=== PATIENT | male | born 1935 | race Caucasian/White ===

== ENCOUNTER 2018-05-25 21:31 | Inpatient (IN) ==
--- NOTE | 2018-05-25 22:08 | ED ---
HPI General Chief Complaint: Shortness of Breath/Dyspnea Stated Complaint: Respitory Time Seen by Provider: 05/25/18 21:56 Source: patient, family and EMS Mode of arrival: EMS Limitations: no limitations History of Present Illness 82-year-old male patient with history of CVA, hypertension, presents to the ER today brought in by EMS, has been complaining of progressive dyspnea, coughing with little phlegm, worse with laying down. He denies any chest pains, fevers, or other symptoms. Patient is on Lasix and has chronic leg edema according to his . They have not noticed whether it is worse or not. He has not changed his dose. Modifying Factors: None Associated Signs & Symptoms: Progressive dyspnea, coughing, orthopnea Risk Factors: None Related Data Home Medications Medication Instructions Recorded Confirmed amlodipine 5 mg PO DAILY 05/25/18 05/25/18 aspirin [Aspir-81] 81 mg PO DAILY 05/25/18 05/25/18 atorvastatin 40 mg PO QPM 05/25/18 05/25/18 carvedilol 25 mg PO BID 05/25/18 05/25/18 furosemide 40 mg PO DAILY 05/25/18 05/25/18 mirabegron [Myrbetriq] 50 mg PO DAILY 05/25/18 05/25/18 tamsulosin 0.4 mg PO DAILY 05/25/18 05/25/18 Allergies Allergy/AdvReac Type Severity Reaction Status Date / Time No Known Allergies Allergy Verified 05/25/18 21:59 Review of Systems ROS: all other systems reviewed are negative [facility] Medical History Medical History Patient denies medical problems (Acute) Surgical History Surgical History No history of previous surgery (Acute) Social History Social History Substance History: No History of Abuse Second Hand Smoke Exposure: No Smoking Status: Former smoker Tobacco Type: Cigarettes How Often Do You Have a Drink Containing Alcohol: 4 or more times a week Recent Travel in [place] within the Last 8 Weeks: No Recent Out of Country Travel within the Last 8 Weeks: No Immunization History Tetanus Immunization: Unsure Exam Narrative Exam Narrative: GENERAL: Well-developed elderly male patient currently and moderate distress. Awake and oriented x3. He is a difficult historian and some of the history is per his . SKIN: Focused skin assessment warm/dry. HEAD: Atraumatic. Normocephalic. EYES: Pupils equal and round. No scleral icterus. No injection or drainage. ENT: No nasal bleeding or discharge. Mucous membranes pink and moist. NECK: Trachea midline. No JVD. CARDIOVASCULAR: Regular rate and rhythm. Loud systolic ejection murmur notable in the left sternal border. RESPIRATORY: No accessory muscle use. Decreased at the bases bilaterally. Breath sounds equal bilaterally. GASTROINTESTINAL: Abdomen soft, non-tender, nondistended. Hepatic and splenic margins not palpable. MUSCULOSKELETAL: No obvious deformities. No clubbing. No cyanosis. No edema. NEUROLOGICAL: Awake and alert. No obvious cranial nerve deficits. Motor grossly within normal limits. Normal speech. PSYCHIATRIC: Appropriate mood and affect; insight and judgment normal. Course Initial Documented Vital Signs Temperature 98.5 F 05/25/18 21:37 Pulse Rate 64 05/25/18 21:37 Respiratory Rate 30 H 05/25/18 21:37 Blood Pressure 151/65 H 05/25/18 21:37 Pulse Oximetry 94 L 05/25/18 21:37 Last Documented Vital Signs Temperature 98.5 F 05/25/18 21:37 Pulse Rate 64 05/25/18 21:37 Respiratory Rate 30 H 05/25/18 21:37 Blood Pressure 151/65 H 05/25/18 21:37 Pulse Oximetry 94 L 05/25/18 21:37 Medical Decision Making [facility] Narrative Medical decision making narrative: Chest x-ray would be indicative of underlying CHF. IV Lasix was given in the ER. Lab work also shows elevated creatinine. At this point, plan would be to admit the patient for further treatment. Case was discussed with Dr. Becerra for admission. Medical Screen Exam Complete: Yes Emergency Medical Condition: Yes Differential Diagnosis Differential Diagnosis: CHF versus pneumonia versus COPD Lab Data Lab results reviewed: Yes I reviewed the patient's lab results. Result diagrams: 05/25/18 22:20 05/25/18 22:20 Lab Results 05/25/18 05/25/18 05/25/18 Range/Units 22:20 22:20 22:20 WBC 8.7 (4.0-11.0) th/mm3 RBC 2.94 L (4.50-5.90) mil/mm3 Hgb 9.2 L (13.0-17.0) gm/dL Hct 26.4 L (39.0-51.0) % MCV 89.7 (80.0-100.0) fL MCH 31.3 (27.0-34.0) pg MCHC 34.9 (32.0-36.0) % RDW 15.5 (11.6-17.2) % Plt Count 232 (150-450) th/mm3 MPV 8.5 (7.0-11.0) fL Neut % (Auto) 72.1 H (16.0-70.0) % Lymph % (Auto) 16.6 (9.0-44.0) % [place] % (Auto) 7.9 (0.0-8.0) % Eos % (Auto) 2.7 (0.0-4.0) % Baso % (Auto) 0.7 (0.0-2.0) % Neut # (Auto) 6.3 (1.8-7.7) th/mm3 Lymph # (Auto) 1.4 (1.0-4.8) th/mm3 [place] # (Auto) 0.7 (0.0-0.9) th/mm3 Eos # (Auto) 0.2 (0.0-0.4) th/mm3 Baso # (Auto) 0.1 (0.0-0.2) th/mm3 WBC Differential . Differential Comment Auto diff final Sodium 142 (136-145) meq/L Potassium 4.3 (3.5-5.1) meq/L Chloride 109 H (98-107) meq/L Carbon Dioxide 24.9 (21.0-32.0) meq/L Anion Gap 8 (5-15) meq/L BUN 42 H (7-18) mg/dL Creatinine 3.54 H (0.60-1.30) mg/dL Estimated GFR 17 L (>89) mL/min Random Glucose 125 H (74-106) mg/dL Calcium 9.0 (8.5-10.1) mg/dL Total Bilirubin 0.6 (0.2-1.0) mg/dL AST 10 L (15-37) U/L ALT 14 (12-78) U/L Alkaline Phosphatase 109 (45-117) U/L Troponin I Less than 0.02 L (0.02-0.05) ng/mL B-Natriuretic Peptide 649 H (0-100) pg/mL Total Protein 7.2 (6.4-8.2) g/dL Albumin 3.5 (3.4-5.0) g/dL Imaging Data Attestation: I personally reviewed and interpreted this imaging study as follows : Radiologist's impression: Chest X-Ray 05/25/18 22:07 CONCLUSION: 1. Moderate pulmonary vascular congestion bilaterally. 2. Cardiomegaly. ECG Data Attestation: I personally reviewed and interpreted this ECG as follows: Interpretation: EKG shows wide complex rhythm at a rate of 72 bpm. Discharge Plan Discharge Order Discharge Orders: ED Use Only Admit Order (Routine); Ordered 05/25/18 Ordered By: Sandra Conde Discharge Details Anticipated Discharge Date: 05/25/18 Physicians Team ED Provider: Sandra Conde Primary Care Provider: Arya Brar Rxs /Orders / Referrals /Forms Prescriptions: No Action amlodipine 5 mg Tablet 5 mg PO DAILY RF: 0 aspirin [Aspir-81] 81 mg Tablet,Delayed Release (Dr/Ec) 81 mg PO DAILY RF: 0 mirabegron [Myrbetriq] 50 mg Tablet Extended Release 24 Hr 50 mg PO DAILY RF: 0 furosemide 40 mg Tablet 40 mg PO DAILY RF: 0 atorvastatin 40 mg Tablet 40 mg PO QPM RF: 0 carvedilol 25 mg Tablet 25 mg PO BID RF: 0 tamsulosin 0.4 mg Capsule 0.4 mg PO DAILY RF: 0 Discharge Interventions Interventions: Vital Signs Last Done: 05/25/18 21:37 Status ED Status: Admitted Patient
--- NOTE | 2018-05-25 22:33 | XR ---
EXAM DATE: 05/25/2018 10:28 PM EST AGE/SEX: 82 years / Male INDICATIONS: Short of breath. CLINICAL DATA: This is the patient's initial encounter. Patient reports that signs and symptoms have been present for 1 day and indicates a pain score of 0/10. MEDICAL/SURGICAL HISTORY: Hypertension. None. COMPARISON: No prior exams available for comparison. FINDINGS: The heart is enlarged. Moderate pulmonary vascular congestion is noted bilaterally. No focal alveolar consolidation is noted. Degenerative changes are noted throughout the thoracic spine. CONCLUSION: 1. Moderate pulmonary vascular congestion bilaterally. 2. Cardiomegaly. Electronically signed by: Fabricio Becerra MD Board Certified Radiologist 05/25/2018 10:31 PM EST
[2018-05-25 22:58] LABS: Baso # (Auto) 0.1 th/mm3 (0.0-0.2); Baso % (Auto) 0.7 % (0.0-2.0); Eos # (Auto) 0.2 th/mm3 (0.0-0.4); Eos % (Auto) 2.7 % (0.0-4.0); Hematocrit 26.4 % (39.0-51.0); Hemoglobin 9.2 gm/dL (13.0-17.0); Lymph # (Auto) 1.4 th/mm3 (1.0-4.8); Lymph % (Auto) 16.6 % (9.0-44.0); Mean Corpuscular HGB Conc 34.9 % (32.0-36.0); Mean Corpuscular Hemoglobin 31.3 pg (27.0-34.0); Mean Corpuscular Volume 89.7 fL (80.0-100.0); Mean Platelet Volume 8.5 fL (7.0-11.0); Mono # (Auto) 0.7 th/mm3 (0.0-0.9); Mono % (Auto) 7.9 % (0.0-8.0); Neut # (Auto) 6.3 th/mm3 (1.8-7.7); Neut % (Auto) 72.1 % (16.0-70.0); Platelet Count 232 th/mm3 (150-450); Red Blood Count 2.94 mil/mm3 (4.50-5.90); Red Cell Distribution Width 15.5 % (11.6-17.2); White Blood Count 8.7 th/mm3 (4.0-11.0)
[2018-05-25 23:14] LABS: Alanine Aminotransferase 14 U/L (12-78); Albumin 3.5 g/dL (3.4-5.0); Anion Gap 8 meq/L (5-15); Aspartate Aminotransferase 10 U/L (15-37); Blood Urea Nitrogen 42 mg/dL (7-18); Carbon Dioxide 24.9 meq/L (21.0-32.0); Chloride 109 meq/L (98-107); Glomerular Filtration Rate 17 mL/min (>89); Glucose,Random 125 mg/dL (74-106); Potassium 4.3 meq/L (3.5-5.1); Sodium 142 meq/L (136-145)
[2018-05-25 23:18] LABS: Alkaline Phosphatase 109 U/L (45-117); Total Protein 7.2 g/dL (6.4-8.2)
[2018-05-26] MEDS ORDERED: Acetaminophen 325 MG Tablet PO PRN (00:11)
--- NOTE | 2018-05-26 00:46 | P.HP ---
History of Present Illness Service: [facility] Primary Care Physician: rAya Brar DO History of Present Illness: 82-year-old male with a past medical history significant for dementia, history of TIA/CVA, history of endocarditis in May 2015, hypertension, hyperlipidemia and chronic kidney disease with acute worsening in renal function as discovered on outpatient labs presents to the emergency department for the evaluation of shortness of breath. The patient reports he has become increasingly dyspneic over the last 2 days and has been suffering from paroxysmal nocturnal dyspnea. He reports he is unable to sleep because of this. He denies any chest pain. Endorses a cough productive of yellow sputum. No fever/chills. No abdominal pain. No nausea/vomiting/diarrhea. No focal neurologic deficits. Majority of the history is provided by the who is bedside. They deny a history of congestive heart failure. Patient last had an echo done approximately 1 year ago. His health safety engineer is Dr. Echols. 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 - Medical History Medical History: Medical History (Last Updated 05/26/18 @ 00:42 by Nani Becerra MD) Chronic kidney disease Dementia History of CVA (cerebrovascular accident) History of endocarditis Hyperlipidemia Hypertension - Surgical History Surgical History: Surgical History (Last Reviewed 05/26/18 @ 00:42 by Nani Becerra MD) No history of previous surgery - Family History Family History: Family History (Last Updated 05/26/18 @ 00:42 by Nani Becerra MD) Other Family history normal - Social History I have reviewed the patient's Social History: Yes - Tobacco History Second Hand Smoke Exposure: No Tobacco Use In Past 30 Days: No Smoking Status: Former smoker Tobacco Type: Cigarettes - Alcohol History How Often Do You Have a Drink Containing Alcohol: 4 or more times a week - Substance Use History Substance History: No History of Abuse - Travel History Recent Travel in the [place] Within the Last 8 Weeks: No Recent Travel Out of the Country Within the Last 8 Weeks: No - Immunization History Tetanus Immunization: Unsure Medications and Allergies Active Medications: Active Medications Acetaminophen (Tylenol) 650 mg PO Q4H PRN PRN Reason: Temp > 100.4 Amlodipine Besylate (Norvasc) 5 mg PO DAILY NELLY Aspirin (Ecotrin) 81 mg PO DAILY NELLY Atorvastatin Calcium (Lipitor) 40 mg PO QPM [facility] Furosemide (Lasix Inj) 40 mg IV.PUSH BID@0900,1800 [facility] Heparin Sodium (Porcine) (Heparin Inj) 5,000 units SQ Q8H [facility] Non-Formulary Medication (Carvedilol [Carvedilol]) 25 mg PO BID [facility] Non-Formulary Medication (Mirabegron [Myrbetriq]) 50 mg PO DAILY [facility] Ondansetron HCl (Zofran Inj) 4 mg IV.PUSH Q6H PRN PRN Reason: NAUSEA OR VOMITING Sodium Chloride (Ns Flush) 2 ml IV.FLUSH BID NELLY Sodium Chloride (Ns Flush) 2 ml IV.FLUSH PRN PRN PRN Reason: FLUSH AFTER USING IV ACCESS Tamsulosin HCl (Flomax) 0.4 mg PO DAILY [facility] Allergies Allergy/AdvReac Type Severity Reaction Status Date / Time No Known Allergies Allergy Verified 05/25/18 21:59 Home Medications Medication Instructions Recorded Confirmed Type amlodipine 5 mg PO DAILY 05/25/18 05/25/18 History aspirin [Aspir-81] 81 mg PO DAILY 05/25/18 05/25/18 History atorvastatin 40 mg PO QPM 05/25/18 05/25/18 History carvedilol 25 mg PO BID 05/25/18 05/25/18 History furosemide 40 mg PO DAILY 05/25/18 05/25/18 History mirabegron [Myrbetriq] 50 mg PO DAILY 05/25/18 05/25/18 History tamsulosin 0.4 mg PO DAILY 05/25/18 05/25/18 History Exam Vital signs: Vital Signs 05/25/18 21:37 05/25/18 23:58 Temperature 98.5 F Pulse Rate 64 Respiratory Rate 30 H Blood Pressure 151/65 H Pulse Oximetry 94 L 95 Intake & Output 05/25/18 05/25/18 05/26/18 06:59 18:59 06:59 Weight 90.718 kg Narrative: Gen.: No acute distress Head: Normocephalic. Atraumatic. EENT: Pupils equal round and reactive to light. Nose without drainage. Airway intact. Throat without injection. Cardiovascular: Regular rate and rhythm. No murmurs, rubs or gallops. Respiratory: Lungs clear to auscultation bilaterally. No wheezes or rhonchi. Abdomen: Soft, nontender, nondistended. No peritoneal signs. Musculoskeletal: No gross deformities. No edema. Skin: No obvious rashes or erythema. Neuro: Sensory and motor grossly intact. Cranial nerves II through XII grossly intact. Results - Labs CBC & Chem 7: 05/25/18 22:20 05/25/18 22:20 Labs: Laboratory Results - last 24 hr 05/25/18 05/25/18 05/25/18 22:20 22:20 22:20 WBC 8.7 RBC 2.94 L Hgb 9.2 L Hct 26.4 L MCV 89.7 MCH 31.3 MCHC 34.9 RDW 15.5 Plt Count 232 MPV 8.5 Neut % (Auto) 72.1 H Lymph % (Auto) 16.6 [place] % (Auto) 7.9 Eos % (Auto) 2.7 Baso % (Auto) 0.7 Neut # (Auto) 6.3 Lymph # (Auto) 1.4 [place] # (Auto) 0.7 Eos # (Auto) 0.2 Baso # (Auto) 0.1 WBC Differential . Differential Comment Auto diff final Sodium 142 Potassium 4.3 Chloride 109 H Carbon Dioxide 24.9 Anion Gap 8 BUN 42 H Creatinine 3.54 H Estimated GFR 17 L Random Glucose 125 H Calcium 9.0 Total Bilirubin 0.6 AST 10 L ALT 14 Alkaline Phosphatase 109 Troponin I Less than 0.02 L B-Natriuretic Peptide 649 H Total Protein 7.2 Albumin 3.5 - Imaging Impressions Chest X-Ray 05/25/18 22:07 CONCLUSION: 1. Moderate pulmonary vascular congestion bilaterally. 2. Cardiomegaly. Caprini VTE Risk Assessment Caprini VTE Risk Assessment: Moderate/High Risk (score >= 2) Caprini Risk Assessment Model: Point Value = 1 Point Value = 2 Point Value = 3 Point Value = 5 Age 41-60 Minor surgery BMI > 25 kg/m2 Swollen legs Varicose veins or History of unexplained or recurrent spontaneous Oral contraceptives or hormone replacement Sepsis (< 1 month) Serious lung disease, including pneumonia (< 1 month) Abnormal pulmonary function Acute myocardial infarction Congestive heart failure (< 1 month) History of inflammatory bowel disease Medical patient at bed rest Age 61-74 Arthroscopic surgery Major open surgery (> 45 min) Laparoscopic surgery (> 45 min) Malignancy Confined to bed (> 72 hours) Immobilizing plaster cast Central venous access Age >= 75 History of VTE Family history of VTE Factor V Leiden Prothrombin [id number] Lupus anticoagulant Anticardiolipin antibodies Elevated serum homocysteine Heparin-induced thrombocytopenia Other congenital or acquired thrombophilia Stroke (< 1 month) Elective arthroplasty Hip, pelvis, or leg fracture Acute spinal cord injury (< 1 month) Prophylaxis Regimen: Total Risk Factor Score Risk Level Prophylaxis Regimen 0-1 Low Early ambulation 2 Moderate Order ONE of the following: *Sequential Compression Device (SCD) *Heparin 5000 units SQ BID 3-4 Higher Order ONE of the following medications: *Heparin 5000 units SQ TID *Enoxaparin/Lovenox 40 mg SQ daily (WT < 150 kg, CrCl > 30 mL/min) *Enoxaparin/Lovenox 30 mg SQ daily (WT < 150 kg, CrCl > 10-29 mL/min) *Enoxaparin/Lovenox 30 mg SQ BID (WT < 150 kg, CrCl > 30 mL/min) AND/OR *Sequential Compression Device (SCD) 5 or more Highest Order ONE of the following medications: *Heparin 5000 units SQ TID (Preferred with Epidurals) *Enoxaparin/Lovenox 40 mg SQ daily (WT < 150 kg, CrCl > 30 mL/min) *Enoxaparin/Lovenox 30 mg SQ daily (WT < 150 kg, CrCl > 10-29 mL/min) *Enoxaparin/Lovenox 30 mg SQ BID (WT < 150 kg, CrCl > 30 mL/min) AND *Sequential Compression Device (SCD) Assessment and Plan - Plan Assessment/plan: 1. Shortness of breath/PND Patient denies history of congestive heart failure BNP 649 Chest x-ray significant for moderate bilateral pulmonary vascular congestion IV Lasix Echo pending 2. Acute on chronic renal insufficiency Creatinine 3.54, baseline unknown Per patient he recently jumped from stage III to stage IV kidney disease and has a renal ultrasound scheduled for from his primary care provider Renal ultrasound pending Monitor renal function 3. History of endocarditis Patient followed by cardiology and has serial echoes (last done approximately 1 year ago) for endocarditis in May 2015 4. Hypertension/hyperlipidemia Continue home medications 5. Edema Patient on home Lasix for reported edema IV Lasix as above FEN Heart healthy diet Electrolytes: Monitor and replete as needed Heparin
[2018-05-26] MEDS: Heparin - SQ 10,000 UNITS/ML Vial SQ SCH ×3 (03:14→17:48)
[2018-05-26] MEDS ORDERED: Carvedilol 12.5 MG Tablet PO SCH (09:00)
[2018-05-26] MEDS: amLODIPine 5 MG Tablet PO SCH (09:30)
[2018-05-26] MEDS: Tolterodine Tartrate LA 4 MG Capsule PO SCH (09:33)
[2018-05-26] MEDS: Carvedilol 12.5 MG Tablet PO SCH ×2 (09:33→20:01)
[2018-05-26 11:01] LABS: Calcium 9.1 mg/dL (8.5-10.1); Carbon Dioxide 24.9 meq/L (21.0-32.0); Potassium 4.1 meq/L (3.5-5.1)
--- NOTE | 2018-05-26 14:21 | US ---
EXAM DATE: 05/26/2018 2:15 PM EST AGE/SEX: 82 years / Male INDICATIONS: Increased BUN and Creatinine. CLINICAL DATA: This is the patient's initial encounter. Patient reports that signs and symptoms have been present for 1 day and indicates a pain score of 0/10. MEDICAL/SURGICAL HISTORY: Dementia. Hypercholesterolemia. Hypertension. Endocarditis - 2015. Chronic kidney disease. CVA/TIA. None. COMPARISON: No prior exams available for comparison. MEASUREMENTS: Right Kidney:__11.7 x 6.1 x 5.4 cm Left Kidney:__10.5 x 5.5 x 5.9 cm FINDINGS: Right Kidney: Increased echogenicity. No mass or hydronephrosis. Left Kidney: Increased echogenicity. No mass or hydronephrosis. Bladder: Within normal limits given the degree of distension. Other: None. CONCLUSION: Mild increased echogenicity of the kidneys which can suggest medical renal disease. No hydronephrosis is seen. Electronically signed by: Gatito Bach MD Board Certified Radiologist 05/26/2018 2:20 PM EST
--- NOTE | 2018-05-26 16:48 | P.PNIM ---
Subjective Interval history: 82-year-old gentleman admitted with CHF Patient seen and examined in follow-up, at bedside, case discussed, patient states breathing a little easier, but still appears to have increased work of breathing at rest. Physical Exam Vital signs: Last Vital Signs Temp 97.7 F 05/26/18 11:54 Pulse 59 L 05/26/18 11:54 Resp 16 05/26/18 11:54 BP 113/54 L 05/26/18 11:54 Pulse Ox 95 05/26/18 11:54 Intake & Output 05/24/18 05/25/18 05/26/18 05/27/18 06:59 06:59 06:59 06:59 Weight 90.718 kg Awake alert oriented to person, forgetful Heart S1-S2 regular3/6 systolic murmur Lungs coarse rales bilateral bases decreased air movement Abdomen obese soft nontender positive bowel sounds Extremities +1 edema no calf tenderness pulses palpable Results Labs CBC & Chem 7: 05/25/18 22:20 05/26/18 10:25 Imaging Imaging: Impressions Chest X-Ray 05/25/18 22:07 CONCLUSION: 1. Moderate pulmonary vascular congestion bilaterally. 2. Cardiomegaly. Abdomen/Bladder Ultrasound 05/26/18 00:00 CONCLUSION: Mild increased echogenicity of the kidneys which can suggest medical renal disease. No hydronephrosis is seen. Assessment and Plan Plan ACUTE EXACERBATION CHF - diastolic? suspect due to in setting of volume overload related to worsening ckd, echo pending, diuresis, cardio consult, strict i/os REHANA on CKD IV - renal us no obstruction, medical renal dz, cont close monitoring., renal dosing, ENDOCARDITIS hx and septic cerebral emboli/infarct w gait and cognitive and memory impairment, wc bound fall precautions, pt eval HTN - cont bp meds, no harpreet due to as, ckd DYSLIPIDEMIA - cont statin ANEMIA of ckd - fu echo, cardio eval dvt prophylaxis - heparin sq dispo - home w h[facility] pending clinical course, prob 2-3 days. Progress Note: Quality VTE Deep Vein Thrombosis/Pulmonary Embolism Present on Admission: No
[2018-05-27] MEDS: Heparin - SQ 10,000 UNITS/ML Vial SQ SCH ×3 (00:29→17:40)
--- NOTE | 2018-05-27 01:43 | ECG ---
Date Performed: 05/25/2018 Time Performed: 22:33:27 PTAGE: 82 years EKG: BASELINE ARTIFACT, CONSIDER REPEAT SUPRAVENTRICULAR RHYTHM MODERATE INTRAVENTRICULAR CONDUC TION DELAY MODERATE ST DEPRESSION ABNORMAL ECG NO PREVIOUS TRACING DOCTOR: Sidney Whitney Interpretating Date/Time 05/27/2018 01:42:29
[2018-05-27 05:27] LABS: Baso % (Auto) 0.7 % (0.0-2.0); Eos # (Auto) 0.3 th/mm3 (0.0-0.4); Eos % (Auto) 4.4 % (0.0-4.0); Hematocrit 25.1 % (39.0-51.0); Hemoglobin 8.8 gm/dL (13.0-17.0); Lymph # (Auto) 1.7 th/mm3 (1.0-4.8); Lymph % (Auto) 24.7 % (9.0-44.0); Mean Corpuscular HGB Conc 35.3 % (32.0-36.0); Mean Corpuscular Hemoglobin 31.3 pg (27.0-34.0); Mean Corpuscular Volume 88.8 fL (80.0-100.0); Mean Platelet Volume 8.3 fL (7.0-11.0); Mono # (Auto) 0.6 th/mm3 (0.0-0.9); Mono % (Auto) 9.4 % (0.0-8.0); Neut # (Auto) 4.1 th/mm3 (1.8-7.7); Neut % (Auto) 60.8 % (16.0-70.0); Platelet Count 217 th/mm3 (150-450); Red Blood Count 2.82 mil/mm3 (4.50-5.90); Red Cell Distribution Width 15.1 % (11.6-17.2); White Blood Count 6.7 th/mm3 (4.0-11.0)
[2018-05-27 05:45] LABS: Calcium 9.5 mg/dL (8.5-10.1); Potassium 3.8 meq/L (3.5-5.1)
[2018-05-27] MEDS: Carvedilol 12.5 MG Tablet PO SCH ×2 (09:03→20:41)
[2018-05-27] MEDS: Tolterodine Tartrate LA 4 MG Capsule PO SCH (09:04)
[2018-05-27] MEDS: amLODIPine 5 MG Tablet PO SCH (09:04)
--- NOTE | 2018-05-27 09:54 | P.PN ---
Subjective Interval history: Follow-up visit for CHF. Patient seen and examined sitting up in bed in no acute distress. Reports his breathing is stable, denies any fevers, chills, nausea, vomiting, diarrhea, cough or chest pain. Patient reports that he is followed by a heart doctor in [place]. Physical Exam Vital signs: Vital Signs 05/26/18 11:54 05/26/18 16:00 05/26/18 17:05 Temperature 97.7 F 97.6 F Pulse Rate 59 L 62 Respiratory Rate 16 16 Blood Pressure 113/54 L 130/60 Pulse Oximetry 95 91 L 95 05/26/18 20:00 05/26/18 22:05 05/27/18 00:00 Temperature 97.7 F Pulse Rate 70 60 Respiratory Rate 17 Blood Pressure 128/58 L Pulse Oximetry 92 L 92 L 05/27/18 00:27 05/27/18 03:45 05/27/18 04:00 Temperature 98.4 F 98.1 F Pulse Rate 61 63 62 Respiratory Rate 16 16 Blood Pressure 127/60 123/57 L Pulse Oximetry 93 L 93 L 05/27/18 07:54 05/27/18 08:00 Temperature 98.2 F Pulse Rate 60 67 Respiratory Rate 17 Blood Pressure 132/61 Pulse Oximetry 92 L Intake & Output 05/26/18 05/27/18 05/27/18 18:59 06:59 18:59 Intake Total 240 / 240 Output Total 2175 / 2175 Balance -1935 / -1935 Weight 96.2 kg Intake: Oral 240 / 240 Output: Urine 2175 / 2175 Other: # Voids 4 Date of Last Bowel Movement 05/25/18 Narrative: GENERAL: Well developed, well-nourished male sitting up in bed in no acute distress. SKIN: Warm and dry. HEAD: Atraumatic. Normocephalic. EYES: Pupils equal and round. No scleral icterus. No injection or drainage. ENT: No nasal bleeding or discharge. Mucous membranes pink and moist. NECK: Trachea midline. No JVD. CARDIOVASCULAR: Regular rate and rhythm, murmur 3/6. RESPIRATORY: No accessory muscle use. Fine right posterior lobe crackles, clear throughout the rest. GASTROINTESTINAL: Abdomen soft, non-tender, nondistended. + Bowel sounds MUSCULOSKELETAL: Extremities without cyanosis. Bilateral leg and foot +1 edema. No obvious deformities. NEUROLOGICAL: Awake, alert, oriented x3. No obvious cranial nerve deficits. Motor grossly within normal limits. Normal speech. PSYCHIATRIC: Appropriate mood and affect; insight and judgment normal. Results - Labs CBC & Chem 7: 05/27/18 04:16 05/27/18 04:16 Laboratory Results - last 24 hr 05/26/18 05/27/18 05/27/18 10:25 04:16 04:16 WBC 6.7 RBC 2.82 L Hgb 8.8 L Hct 25.1 L MCV 88.8 MCH 31.3 MCHC 35.3 RDW 15.1 Plt Count 217 MPV 8.3 Neut % (Auto) 60.8 Lymph % (Auto) 24.7 [place] % (Auto) 9.4 H Eos % (Auto) 4.4 H Baso % (Auto) 0.7 Neut # (Auto) 4.1 Lymph # (Auto) 1.7 [place] # (Auto) 0.6 Eos # (Auto) 0.3 Baso # (Auto) 0.0 WBC Differential . Differential Comment Auto diff final Sodium 143 143 Potassium 4.1 3.8 Chloride 108 H 107 Carbon Dioxide 24.9 26.0 Anion Gap 10 10 BUN 46 H 46 H Creatinine 3.55 H 3.46 H Estimated GFR 17 L 17 L Random Glucose 125 H 119 H Calcium 9.1 9.5 - Imaging Impressions Abdomen/Bladder Ultrasound 05/26/18 00:00 CONCLUSION: Mild increased echogenicity of the kidneys which can suggest medical renal disease. No hydronephrosis is seen. Assessment and Plan - Plan 82-year-old male with past medical history significant for dementia, TIA/CVA, endocarditis, HTN, HLD and chronic kidney disease who presented to the emergency department on 05/26 due to increase dyspnea. Shortness of breath/PND Patient denies history of congestive heart failure Leg edema BNP 649 - Chest x-ray significant for moderate bilateral pulmonary vascular congestion - Continue IV Lasix, monitor electrolytes - Cardiology consulted due to new onset of CHF, appreciate assistance - Echo pending - Edema improved Acute on chronic renal insufficiency Creatinine 3.54, baseline unknown Per patient he recently jumped from stage III to stage IV kidney disease and has a renal ultrasound scheduled for from his primary care provider -Renal ultrasound with mildly increased echogenicity of the kidneys which could suggest medical renal disease, no hydronephrosis. -Renal function stable, avoid nephrotoxins. History of endocarditis - Patient followed by cardiology and has serial echoes (last done approximately 1 year ago) for endocarditis in May 2015 Hypertension/hyperlipidemia - Continue home medications Anemia -H&H 8.1/25.1, likely due to chronic renal disease DVT prophylaxissubq Heparin Discussed Condition With: Patient, RN and at bedside.
--- NOTE | 2018-05-27 15:41 | ECHRPT ---
Indication: Heart Failure CONCLUSIONS Normal left ventricular size. Mild concentric left ventricular hypertrophy. The left ventricular systolic function is low normal with an estimated ejection fraction in the rang e of 50- 55%. The left atrial size is mildly dilated. Severe mitral annular calcification. Mild mitral valve regurgitation. Mild mitral valve stenosis. Diffuse calcification of the aortic valve. Moderate aortic valve regurgitation. Moderate aortic valve stenosis. There is trace tricuspid valve regurgitation. The estimated pulmonary arterial pressure is 36 mmHg. BP: / HR: Rhythm: MEASUREMENTS (Male / Female) Normal Values Technical Quality:Fair 2D ECHO LV Diastolic Diameter PLAX 5.3 cm 4.2 - 5.9 / 3.9 - 5.3 cm LV Systolic Diameter PLAX 4.2 cm IVS Diastolic Thickness 1.2 cm 0.6 - 1.0 / 0.6 - 0.9 cm LVPW Diastolic Thickness 1.1 cm 0.6 - 1.0 / 0.6 - 0.9 cm LV Relative Wall Thickness 0.4 RV Internal Dim ED PLAX 2.8 cm LVOT Diameter 2.2 cm Aortic Root Diameter 3.1 cm LA Systolic Diameter LX 4.6 cm 3.0 - 4.0 / 2.7 - 3.8 cm DOPPLER AV Peak Velocity 388.0 cm/s AV Peak Gradient 60.2 mmHg AV Mean Gradient 35.0 mmHg AV Velocity Time Integral 102.0 cm AI Peak Velocity 357.7 cm/s AI Peak Gradient 51.2 mmHg AI Pressure Half Time 541.0 ms LVOT Peak Velocity 86.5 cm/s LVOT Peak Gradient 3.0 mmHg LVOT Velocity Time Integral 23.3 cm AV Area Cont Eq vti 0.9 cm AV Area Cont Eq pk 0.8 cm MV Peak Velocity 176.0 cm/s MV Peak Gradient 12.4 mmHg MV Mean Velocity 91.0 cm/s MV Mean Gradient 4.0 mmHg MV Area PHT 3.3 cm Mitral E Point Velocity 195.0 cm/s Mitral A Point Velocity 137.0 cm/s Mitral E to A Ratio 1.4 LV E' Lateral Velocity 4.3 cm/s Mitral E to LV E' Lateral Ratio 45.8 LV E' Septal Velocity 2.7 cm/s Mitral E to LV E' Septal Ratio 73.3 TR Peak Velocity 255.0 cm/s TR Peak Gradient 26.0 mmHg Right Atrial Pressure 10.0 mmHg Pulmonary Artery Systolic Pressu 36.0 mmHg Right Ventricular Systolic Press 36.0 mmHg PV Peak Velocity 80.1 cm/s PV Peak Gradient 2.6 mmHg FINDINGS LEFT VENTRICLE Normal left ventricular size. Mild concentric left ventricular hypertrophy. The left ventricular systolic function is low normal with an estimated ejection fraction in the rang e of 50- 55%. RIGHT VENTRICLE Normal right ventricular size and systolic function. LEFT ATRIUM The left atrial size is mildly dilated. RIGHT ATRIUM The right atrial size is normal. ATRIAL SEPTUM Normal atrial septal thickness without atrial level shunting by limited color doppler interrogation. AORTA The aortic root and proximal ascending aorta are normal in size on limited imaging. MITRAL VALVE Severe mitral annular calcification. Mild mitral valve regurgitation. Mild mitral valve stenosis. AORTIC VALVE Trileaflet aortic valve. Diffuse calcification of the aortic valve. Moderate aortic valve regurgitation. Moderate aortic valve stenosis. TRICUSPID VALVE There is trace tricuspid valve regurgitation. The estimated pulmonary arterial pressure is 36 mmHg. PULMONARY VALVE No pulmonary valve regurgitation or stenosis. VESSELS The inferior vena cava is normal in size. PERICARDIUM No pericardial effusion. Adolph Dill MD, FACC, FSCAI (Electronically Signed) Final Date:27 May 2018 15:39
--- NOTE | 2018-05-27 18:48 | MB ---
cc: Adolph Dill MD DATE: 05/27/2018 HISTORY OF PRESENT ILLNESS: Ian is an 82-year-old gentleman who presents with a chief complaint of shortness of breath, which is improved since admission. He otherwise denies any fevers, chills or cough, GI or bleeding, PND, orthopnea, syncope or dizziness. PAST MEDICAL HISTORY: Per history of present illness. He has a history of chronic renal insufficiency, dementia, history of CVA, endocarditis, hyperlipidemia, hypertension. ALLERGIES: NONE. SOCIAL HISTORY: Denies tobacco or alcohol abuse. MEDICATIONS IN THE HOSPITAL: 1. Aspirin 81 mg a day. 2. Lipitor 40 mg q.p.m. 3. Coreg 25 mg b.i.d. 4. Lasix 40 mg IV b.i.d. 5. Heparin 5000 subcutaneous q.8 hours. 6. Flomax 0.4 mg daily. 7. Detrol 4 mg daily. PHYSICAL EXAMINATION: VITAL SIGNS: Blood pressure 135/63, pulse 54, temperature 97.4, respiratory rate 17, sats 92% on 3 liters nasal cannula. GENERAL: He is alert and oriented x3, in no acute distress. NECK: Supple. No JVD. No bruit. CARDIOVASCULAR: S1, S2. No murmurs, rubs or gallops. LUNGS: Notable for decreased air movement at the bases. ABDOMEN: Soft, nontender, nondistended, positive bowel sounds. EXTREMITIES: 1 to 2+ lower extremity edema. LABORATORY DATA: Chest x-ray shows moderate pulmonary vascular congestion bilaterally. On 05/25/2018 and cardiomegaly. EKG on 05/25/2018 indeterminate rhythm due to baseline wander and artifact, frequent PVCs and PACs, with abdominal and bladder ultrasound, mild increased echogenicity of the kidneys, which can suggest medical renal disease, no hydronephrosis is seen. Echocardiogram read by myself. EF 50% to 55%. Severe mitral annular calcification, mild mitral valve regurgitation, mild mitral valve stenosis. Moderate aortic valve regurgitation, moderate aortic valve stenosis. PA systolic pressure of 36 mmHg. LABORATORY DATA: White count 6.7, hemoglobin 8.8, hematocrit 25.1, platelet count 217. Sodium 143, potassium 3.8, chloride 107, bicarbonate 26.0, BUN 46, creatinine 3.46. BNP is 649. Troponin less than 0.02. DIAGNOSES: 1. Acute renal failure. 2. Chronic renal insufficiency. 3. Congestive heart failure. 4. Moderate aortic valve stenosis. 5. Mild mitral valve stenosis. 6. Moderate aortic valve regurgitation. 7. Mild pulmonary hypertension. 8. Decompensated congestive heart failure. 9. Anemia. 10. Arrhythmia. DISCUSSION: The patient appears to be improving with diuresis. Recommend continue diuretics. Also, can recheck EKG to help better ascertain the patient's heart rhythm. Recommend observation for his valvular heart disease. We will trend BNP and BMP, otherwise appears to be optimally medicated with aspirin, Lipitor, Coreg and Lasix 40 IV twice daily. Adolph Dill MD AWC/ct , 04:44 PM , 04:54 PM
[2018-05-28] MEDS: Heparin - SQ 10,000 UNITS/ML Vial SQ SCH ×2 (00:38→08:06)
[2018-05-28 05:40] LABS: Calcium 9.3 mg/dL (8.5-10.1); Carbon Dioxide 26.6 meq/L (21.0-32.0); Magnesium 2.3 mg/dL (1.5-2.5); Potassium 3.5 meq/L (3.5-5.1)
[2018-05-28 07:47] LABS: % Iron Saturation 23.1 % (20-50)
[2018-05-28] MEDS: Carvedilol 12.5 MG Tablet PO SCH (08:05)
[2018-05-28] MEDS: amLODIPine 5 MG Tablet PO SCH (08:05)
[2018-05-28] MEDS: Tolterodine Tartrate LA 4 MG Capsule PO SCH (08:05)
[2018-05-28] MEDS ORDERED: Furosemide 40 MG Tablet PO SCH (10:00)
--- NOTE | 2018-05-28 10:31 | P.DS ---
Date of admission: 05/26/18 11:40 Primary care physician: Arya Brar DO Attending physician on discharge: Fabricio Brar Anticipated date of discharge: 05/28/18 Brief History from admission: 82-year-old male with a past medical history significant for dementia, history of TIA/CVA, history of endocarditis in May 2015, hypertension, hyperlipidemia and chronic kidney disease with acute worsening in renal function as discovered on outpatient labs presents to the emergency department for the evaluation of shortness of breath. The patient reports he has become increasingly dyspneic over the last 2 days and has been suffering from paroxysmal nocturnal dyspnea. He reports he is unable to sleep because of this. He denies any chest pain. Endorses a cough productive of yellow sputum. No fever/chills. No abdominal pain. No nausea/vomiting/diarrhea. No focal neurologic deficits. Majority of the history is provided by the who is bedside. They deny a history of congestive heart failure. Patient last had an echo done approximately 1 year ago. His consulting sales executive is Dr. Echols. DS: Medications - Discharge Medications Prescriptions: furosemide 40 mg PO BID@0900,1800 #60 tab potassium chloride 8 meq PO BID #60 cap DS: Summary Hospital Course: 82-year-old male with past medical history significant for dementia, TIA/CVA, endocarditis May 2015, HTN, HLD, CKD with recently worsening renal function who presented to the emergency department on 05/26 with complaints of increased dyspnea 2 days prior to admission. CBC on admission was stable with normocytic normochromic anemia H&H 9.2/26.4. BMP with a creatinine 3.54/BUN 42 , BNP 649. Chest x-ray showed moderate pulmonary vascular congestion bilaterally with cardiomegaly. Patient had no past history of congestive heart failure and his consulting sales executive is . He is followed by Dr. Ennis his timekeeper supervisor who recently ordered ultrasound of his kidneys and bladder due to worsening renal function. Ultrasound completed during his hospitalization showed medical renal disease. His BUN and creatinine remained stable on day of discharge creatinine was 3.44, BUN 46 and GFR 17. Cardiology services was consulted for further evaluation due to new onset of CHF. Echo revealed EF 50- 55%, severe mitral annular calcification, mild MVR, mild mitral valve stenosis, diffuse calcification of aortic valve, moderate aortic valve regurg, moderate aortic valve stenosis, trace tricuspid valve regurgitation estimated pulmonary pressure of 36 mmHg. Patient was diuresed with Lasix 40 mg twice daily, follow- up BNP today 519. He is seen and examined sitting up in bed and appears to be in no acute distress, oxygen removed and O2 saturations 92% on room air. at bedside and reports he usually does not move around much at home, most recently only walking several feet at a time. Patient denies any shortness of breath, chest pain, nausea, vomiting, dizziness, lightheadedness. Lung sounds are clear and leg edema is much improved almost resolved. Physical therapy recommended home with home health, discussed with shoe caser to please set up prior to discharge. Discussed with regarding new medication regimen including oral Lasix 40 mg twice a day along with potassium supplementation. Patient will need to follow-up with his consulting sales executive as well as follow-up lab work. Also discussed with to have him follow-up with his timekeeper supervisor . Patient already had renal ultrasound done completed here and can request medical records. Agreeable with home discharge today, their questions answered. Also discussed with Dr. Dill, appreciate assistance who believes it is appropriate for discharge and follow-up with his consulting sales executive as an outpatient. - Time Spent with Patient Total time spent providing and/or coordinating discharge services: Less than 30 minutes - Quality: VTE Deep Vein Thrombosis/Pulmonary Embolism Present on Admission: No Exam Vital signs: Vital Signs 05/27/18 12:11 05/27/18 15:00 05/27/18 15:09 Temperature 97.8 F 97.4 F L Pulse Rate 83 54 L Respiratory Rate 17 17 Blood Pressure 122/56 L 135/63 Pulse Oximetry 95 91 L 92 L 05/27/18 19:45 05/27/18 20:00 05/28/18 00:00 Temperature 97.9 F Pulse Rate 61 64 Respiratory Rate 18 Blood Pressure 136/63 Pulse Oximetry 96 96 05/28/18 00:01 05/28/18 07:55 05/28/18 08:00 Temperature 98.4 F 97.5 F L 97.5 F L Pulse Rate 62 60 61 Respiratory Rate 18 18 18 Blood Pressure 129/60 128/60 128/60 Pulse Oximetry 95 98 96 Intake & Output 05/27/18 05/28/18 05/28/18 18:59 06:59 18:59 Intake Total 840 / 840 Output Total 3100 / 3100 400 / 400 Balance -2260 / -2260 -400 / -400 Weight 96.6 kg Intake: Oral 840 / 840 Output: Urine 3100 / 3100 400 / 400 Other: Date of Last Bowel Movement 05/25/18 05/25/18 # Bowel Movements 0 Narrative: GENERAL: Well developed, well-nourished male sitting up in bed in no acute distress. SKIN: Warm and dry. HEAD: Atraumatic. Normocephalic. EYES: Pupils equal and round. No scleral icterus. No injection or drainage. ENT: No nasal bleeding or discharge. Mucous membranes pink and moist. NECK: Trachea midline. No JVD. CARDIOVASCULAR: Regular rate and rhythm, murmur 3/6. RESPIRATORY: No accessory muscle use. Clear lung sounds without crackles or rhonchi. GASTROINTESTINAL: Abdomen soft, non-tender, nondistended. + Bowel sounds MUSCULOSKELETAL: Extremities without cyanosis. Bilateral leg and foot trace edema, almost completely resolved. No obvious deformities. NEUROLOGICAL: Awake, alert, oriented x3. No obvious cranial nerve deficits. Motor grossly within normal limits. Normal speech. PSYCHIATRIC: Appropriate mood and affect; insight and judgment normal. Results Procedures completed during hospitalization: None Labs on day of discharge: Labs from last 24 hours 05/28/18 05/28/18 05/28/18 04:23 04:23 04:23 Sodium 142 Potassium 3.5 Chloride 107 Carbon Dioxide 26.6 Anion Gap 8 BUN 46 H Creatinine 3.44 H Estimated GFR 17 L Random Glucose 118 H Calcium 9.3 Magnesium 2.3 Iron 61 L TIBC 265 % Saturation 23.1 Ferritin 71 B-Natriuretic Peptide 519 H - Impressions ITS Impressions Chest X-Ray 05/25/18 22:07 CONCLUSION: 1. Moderate pulmonary vascular congestion bilaterally. 2. Cardiomegaly. Abdomen/Bladder Ultrasound 05/26/18 00:00 CONCLUSION: Mild increased echogenicity of the kidneys which can suggest medical renal disease. No hydronephrosis is seen. Discharge Plan - Discharge Disposition Patient Disposition: 01 Discharge Home - Discharge Condition Condition: Fair - Discharge Order Discharge Orders: Discharge Order (Routine); Ordered 05/28/18 Ordered By: Greg Moreno ED Use Only Admit Order (Routine); Ordered 05/25/18 Ordered By: Sandra Conde - Discharge Details Anticipated Discharge Date: 05/25/18 - Physicians Team Primary Care Provider: Arya Brar Attending Provider: Fabricio Brar Other Providers: Adolph Dill MD
--- NOTE | 2018-05-28 10:32 | P.DCO ---
- Physical Therapy Order: Evaluate and treat, Improve ambulation, Strength and gait training - Occupational Therapy Order: Evaluate and treat, Improve ADL - Home Health Nursing Order: Medical education, Signs/symptoms of disease process, CHF education, Medication education-adverse effect - Case Management Consult Case Management Consult-Home Health: Yes - Certification I have seen patient Ian Morrow on 05/28/18. My clinical findings support the need for the requested home health care services because: Patient has SOB, Deconditioned with increased weakness I certify that my clinical findings support that this patient is homebound because: Poor cardiac reserve
--- NOTE | 2018-05-28 12:17 | P.PNCA ---
Subjective Interval history: alert in nad, feels better Medications and Allergies Active Medications: Active Medications Acetaminophen (Tylenol) 650 mg PO Q4H PRN PRN Reason: Temp > 100.4 Amlodipine Besylate (Norvasc) 5 mg PO DAILY [facility] Last Admin: 05/28/18 08:05 Dose: 5 mg Aspirin (Ecotrin) 81 mg PO DAILY [facility] Last Admin: 05/28/18 08:06 Dose: 81 mg Atorvastatin Calcium (Lipitor) 40 mg PO QPM [facility] Last Admin: 05/27/18 17:40 Dose: 40 mg Carvedilol (Coreg) 25 mg PO BID [facility] Last Admin: 05/28/18 08:05 Dose: 25 mg Furosemide (Lasix) 40 mg PO BID@0900,1800 [facility] Last Admin: 05/28/18 09:54 Dose: 40 mg Heparin Sodium (Porcine) (Heparin Inj) 5,000 units SQ Q8H [facility] Last Admin: 05/28/18 08:06 Dose: 5,000 units Ondansetron HCl (Zofran Inj) 4 mg IV.PUSH Q6H PRN PRN Reason: NAUSEA OR VOMITING Sodium Chloride (Ns Flush) 2 ml IV.FLUSH BID [facility] Last Admin: 05/28/18 08:08 Dose: 2 ml Sodium Chloride (Ns Flush) 2 ml IV.FLUSH PRN PRN PRN Reason: FLUSH AFTER USING IV ACCESS Tamsulosin HCl (Flomax) 0.4 mg PO DAILY [facility] Last Admin: 05/28/18 08:05 Dose: 0.4 mg Tolterodine Tartrate (Detrol La) 4 mg PO DAILY [facility] Last Admin: 05/28/18 08:05 Dose: 4 mg Allergies Allergy/AdvReac Type Severity Reaction Status Date / Time No Known Allergies Allergy Verified 05/25/18 21:59 Home Medications Medication Instructions Recorded Confirmed Type amlodipine 5 mg PO DAILY 05/25/18 05/25/18 History aspirin [Aspir-81] 81 mg PO DAILY 05/25/18 05/25/18 History atorvastatin 40 mg PO QPM 05/25/18 05/25/18 History carvedilol 25 mg PO BID 05/25/18 05/25/18 History mirabegron [Myrbetriq] 50 mg PO DAILY 05/25/18 05/25/18 History tamsulosin 0.4 mg PO DAILY 05/25/18 05/25/18 History Physical Exam Vital signs: Vital Signs 05/27/18 15:00 05/27/18 15:09 05/27/18 19:45 Temperature 97.4 F L 97.9 F Pulse Rate 54 L 61 Respiratory Rate 17 18 Blood Pressure 135/63 136/63 Pulse Oximetry 91 L 92 L 96 05/27/18 20:00 05/28/18 00:00 05/28/18 00:01 Temperature 98.4 F Pulse Rate 64 62 Respiratory Rate 18 Blood Pressure 129/60 Pulse Oximetry 96 95 05/28/18 07:55 05/28/18 08:00 05/28/18 11:10 Temperature 97.5 F L 97.5 F L Pulse Rate 60 61 Respiratory Rate 18 18 Blood Pressure 128/60 128/60 Pulse Oximetry 98 96 92 L Intake & Output 05/27/18 05/28/18 05/28/18 18:59 06:59 18:59 Intake Total 840 / 840 Output Total 3100 / 3100 400 / 400 Balance -2260 / -2260 -400 / -400 Weight 96.6 kg Intake: Oral 840 / 840 Output: Urine 3100 / 3100 400 / 400 Other: Date of Last Bowel Movement 05/25/18 05/25/18 # Bowel Movements 0 - Constitutional no acute distress - Routine HEENT Exam Head: Present: normocephalic - Routine Neck Exam Present: supple - Routine Respiratory Exam Present: CTA bilaterally - Routine Cardiovascular Exam Present: S1, S2 - Routine Abdominal Exam Present: soft - Routine Extremities Exam Comments: 1-2+ nasra Results 05/27/18 04:16 05/28/18 04:23 Cardiac Enzymes 05/28/18 Range/Units 04:23 B-Natriuretic Peptide 519 H (0-100) pg/mL Coagulation 05/28/18 Range/Units 04:23 B-Natriuretic Peptide 519 H (0-100) pg/mL CBC 05/27/18 Range/Units 04:16 WBC 6.7 (4.0-11.0) th/mm3 RBC 2.82 L (4.50-5.90) mil/mm3 Hgb 8.8 L (13.0-17.0) gm/dL Hct 25.1 L (39.0-51.0) % Plt Count 217 (150-450) th/mm3 Neut # (Auto) 4.1 (1.8-7.7) th/mm3 Lymph # (Auto) 1.7 (1.0-4.8) th/mm3 [place] # (Auto) 0.6 (0.0-0.9) th/mm3 Eos # (Auto) 0.3 (0.0-0.4) th/mm3 Baso # (Auto) 0.0 (0.0-0.2) th/mm3 Comprehensive Metabolic Panel 05/27/18 05/28/18 Range/Units 04:16 04:23 Sodium 143 142 (136-145) meq/L Potassium 3.8 3.5 (3.5-5.1) meq/L Chloride 107 107 (98-107) meq/L Carbon Dioxide 26.0 26.6 (21.0-32.0) meq/L BUN 46 H 46 H (7-18) mg/dL Creatinine 3.46 H 3.44 H (0.60-1.30) mg/dL Calcium 9.5 9.3 (8.5-10.1) mg/dL Intake and Output 05/27/18 05/28/18 05/28/18 22:59 06:59 14:59 Intake Total 840 / 840 Output Total 3100 / 3100 400 / 400 Balance -2260 / -2260 -400 / -400 Intake: Oral 840 / 840 Output: Urine 3100 / 3100 400 / 400 Other: Date of Last Bowel Movement 05/25/18 05/25/18 # Bowel Movements 0 Weight 96.6 kg - Imaging and Cardiology Imaging: Impressions Abdomen/Bladder Ultrasound 05/26/18 00:00 CONCLUSION: Mild increased echogenicity of the kidneys which can suggest medical renal disease. No hydronephrosis is seen. Assessment and Plan - Assessment (1) CRI (chronic renal insufficiency) Code(s): N18.9 - Chronic kidney disease, unspecified Status: Acute (2) Aortic stenosis Code(s): I35.0 - Nonrheumatic aortic (valve) stenosis Status: Acute (3) Mitral stenosis Code(s): I05.0 - Rheumatic mitral stenosis Status: Acute (4) CHF (congestive heart failure) Code(s): I50.9 - Heart failure, unspecified Status: Acute - Plan 1.) CHF - with mod and mild mitral stenosis - clinically improved, lungs cta ; ok to dc from cv standpoint; i advised the patient and his to f/u with his established drum handler, Dr Echols peyman, they understand
--- NOTE | 2018-05-28 14:23 | ECG ---
Date Performed: 05/27/2018 Time Performed: 17:29:01 PTAGE: 82 years EKG: Sinus rhythm WITH OCCASIONAL VENTRICULAR PREMATURE COMPLEXES MODERATE INTRAVENTRICULAR CONDUCTION DELAY NONSPECIF IC T-WAVE ABNORMALITY PROLONGED QT INTERVAL ABNORMAL ECG Compared to PREVIOUS TRACING , the baseline is somewhat more clear and there is likely no significant change. PREVIOUS TRACIN05/25/2018 22.33 DOCTOR: Ankit August Interpretating Date/Time 05/28/2018 14:21:43
--- NOTE | 2018-05-28 15:11 | P.DCO ---
- Physical Therapy Order: Evaluate and treat, Improve ambulation, Strength and gait training - Occupational Therapy Order: Evaluate and treat, Improve ADL - Case Management Consult Case Management Consult-Home Health: Yes - Certification I have seen patient Ian Morrow on 05/28/18. My clinical findings support the need for the requested home health care services because: Limited mobility due to disease progression, Patient has SOB I certify that my clinical findings support that this patient is homebound because: Poor cardiac reserve
== END 2018-05-28 12:24 | disposition home or self-care (01) ==
LOC: NEDA 21:31 → NEPC 21:31 → NEPFCDU 05-26 04:00 → N06 05-26 12:06
PROVIDERS: ADMIT Internal Medicine; ATTEND Internal Medicine